=== PATIENT | male | born 2000 | race Caucasian/White ===

== ENCOUNTER 2022-07-17 07:55 | Emergency (ER) | payer OTHER ==
[~2022-07-17] VITALS: Ht 180.3 cm; Wt 82.6 kg
[2022-07-17 08:42] VITALS: O2SAT 99
[2022-07-17] MEDS ORDERED: BENZONATATE 100 MG CAP PO STA (08:56)
[2022-07-17 09:32] LABS: STREPTOCOCCUS GRP A ANTIGEN NEGATIVE (NEGATIVE)
[2022-07-17 09:33] LABS: INFLUENZAE A&B ANTIGEN (RAPID) NEGATIVE (NEGATIVE)
[2022-07-17] MEDS ORDERED: BENZONATATE100 MG PO (10:03)
== END 2022-07-17 10:18 | disposition home or self-care (01) ==
LOC: ER 08:16
DX: R05.9 Cough, unspecified (principal); J06.9 Acute upper respiratory infection, unspecified
CPT/HCPCS: 0223U; 36415; 71046; 83518; 87070; 87400; 99283